=== PATIENT | male | born 1970 | race Caucasian/White ===

== ENCOUNTER 2020-06-12 13:32 | Emergency (ER) | payer OTHER, SELFPAY ==
[2020-06-12 14:10] VITALS: BP 124/77; PULSE 80; RESP 18; TEMP 36.6; O2SAT 100; BMI 25.6
[2020-06-12 16:13] VITALS: BP 140/88; PULSE 88; RESP 16; TEMP 36.9; O2SAT 98
--- NOTE | 2020-06-12 16:15 | ED.GENADULT ---
HPI - General Adult General Chief complaint: General Medical <Gretchen Mederos PA-C - Last Filed: 06/12/20 16:21> Stated complaint: NONE LISTED <Gretchen Mederos PA-C - Last Filed: 06/12/20 16:21> Time Seen by Provider: 06/12/20 15:37 <Gretchen Mederos PA-C - Last Filed: 06/12/20 16:21> Source: patient <Gretchen Mederos PA-C - Last Filed: 06/12/20 16:21> Mode of arrival: EMS <HANY Etienne Last Filed: 06/12/20 16:21> Limitations: no limitations <Gretchen Mederos PA-C - Last Filed: 06/12/20 16:21> History of Present Illness HPI narrative: Patient is a 49-year-old male with a past medical history of hyperlipidemia who was brought in by ambulance because he had sudden onset of right facial numbness that lasted approximately 5 minutes. The area of numbness is approximately 1 cm. He denies any loss of vision, blurry vision, headache, dizziness, chest pain, abdominal pain, neck pain or back pain or fevers. He has no other complaints at this time. <Gretchen Mederos PA-C - Last Filed: 06/12/20 16:21> Related Data Allergies/adverse reactions: Allergies Allergy/AdvReac Type Severity Reaction Status Date / Time aspirin [ASPIRIN] Allergy Unknown SWELLING Verified 06/12/20 14:09 ibuprofen [From MOTRIN] Allergy Unknown SWELLING Verified 06/12/20 14:09 CHOCOLATE Allergy Severe SWELLING Uncoded 11/01/19 15:20 <Gretchen Mederos PA-C - Last Filed: 06/12/20 16:21> Review of Systems Review of Systems: Yes all other systems are reviewed and are negative <Gretchen Mederos PA-C - Last Filed: 06/12/20 16:21> Neurologic: Denies Abnormal speech present <Gretchen Mederos PA-C - Last Filed: 06/12/20 16:21> [facility] Social History Social History: Social History Alcohol intake: never Smoking Status: Never smoker Smoked in Last 30 Days: No Use of substances other than those prescribed or required for medical reasons: No Advance Directives: No Advance Directives Information Provided: No <Gretchen Mederos PA-C - Last Filed: 06/12/20 16:21> Physical Exam Vital Signs: Vital Signs: Last Vital Signs Temp 98.4 F 06/12/20 16:13 Pulse 88 06/12/20 16:13 Resp 16 06/12/20 16:13 BP 140/88 H 06/12/20 16:13 Pulse Ox 98 06/12/20 16:13 Body Mass Index 25.6 <Gretchen Mederos PA-C - Last Filed: 06/12/20 16:21> Vital Signs: Last Vital Signs Temp 98.4 F 06/12/20 16:13 Pulse 88 06/12/20 16:13 Resp 16 06/12/20 16:13 BP 140/88 H 06/12/20 16:13 Pulse Ox 98 06/12/20 16:13 Body Mass Index 25.6 <Juan Machado MD - Last Filed: 06/28/20 01:39> Const: General: cooperative, healthy appearing, comfortable and no acute distress <Gretchen Mederos PA-C - Last Filed: 06/12/20 16:21> Nutritional Appearance: average body habitus <Gretchen Mederos PA-C - Last Filed: 06/12/20 16:21> Orientation/consciousness: patient oriented x3 <Gretchen Mederos PA-C - Last Filed: 06/12/20 16:21> HENMT: Head: Yes normal to inspection, Yes No palpable skull fracture present, Yes normocephalic, Yes atraumatic and No abrasion <Gretchen Mederos PA-C - Last Filed: 06/12/20 16:21> Ears: hearing grossly normal bilaterally, external ears normal and TM's normal bilaterally <Gretchen Mederos PA-C - Last Filed: 06/12/20 16:21> General nose exam: Normal external nose present and Normal nares present <Gretchen Mederos PA-C - Last Filed: 06/12/20 16:21> Face and sinus: Yes normal facial exam, Yes sinuses nontender and Yes face symmetric <Gretchen Mederos PA-C - Last Filed: 06/12/20 16:21> Mouth: Normal oral and palatal mucosa present and tongue normal <Gretchen Mederos PA-C - Last Filed: 06/12/20 16:21> Teeth and gingiva: dentition normal <MANUEL EtienneC - Last Filed: 06/12/20 16:21> Throat: Yes posterior oropharynx normal <MANUEL EtienneC - Last Filed: 06/12/20 16:21> Eyes: General: appearance normal, both eyes and all related structures <MANUEL EtienneC - Last Filed: 06/12/20 16:21> Pupils: Equal, round and reactive pupils present <Gretchen Mederos PA-C - Last Filed: 06/12/20 16:21> EOM: EOMs intact bilaterally <MANUEL EtienneC - Last Filed: 06/12/20 16:21> Neck: Neck: Yes normal visual inspection, Yes full ROM, Yes trachea midline and Yes supple <MANUEL EtienneC - Last Filed: 06/12/20 16:21> Resp: Effort & Inspection: normal respiratory effort and able to speak in complete sentences <Gretchen Mederos PA-C - Last Filed: 06/12/20 16:21> Auscultation: clear to auscultation bilaterally <Gretchen Mederos PA-C - Last Filed: 06/12/20 16:21> Cardio: Rate: regular rate <Gretchen Mederos PA-C - Last Filed: 06/12/20 16:21> Rhythm: regular rhythm <Gretchen Mederos PA-C - Last Filed: 06/12/20 16:21> Heart sounds: normal S1 and S2 <Gretchen Mederos PA-C - Last Filed: 06/12/20 16:21> GI: Inspection: Yes normal to inspection <Gretchen Mederos PA-C - Last Filed: 06/12/20 16:21> Palpation (GI): Soft to palpation and nontender <Gretchen Mederos PA-C - Last Filed: 06/12/20 16:21> Skin: General skin exam: no rashes or lesions noted <Gretchen Mederos PA-C - Last Filed: 06/12/20 16:21> Neuro: General: patient oriented x3 <Gretchen Mederos PA-C - Last Filed: 06/12/20 16:21> Cranial nerves: Yes CN's II-XII intact bilaterally and Yes Equal, round and reactive pupils present <Gretchen Mederos PA-C - Last Filed: 06/12/20 16:21> Cognition (Neuro): normal cognition <Gretchen Mederos PA-C - Last Filed: 06/12/20 16:21> Speech: No Abnormal speech present <Gretchen Mederos PA-C - Last Filed: 06/12/20 16:21> Gait exam (Neuro): Normal gait present <Gretchen Mederos PA-C - Last Filed: 06/12/20 16:21> Extrem: General: Yes normal to inspection and Yes full ROM <Gretchen Mederos PA-C - Last Filed: 06/12/20 16:21> Course Course Course Narrative: Patient is a 49-year-old female who had 1 episode of 1 centimetre of numbness and tingling on his right cheek which has completely resolved. He had no further complaints at this time. Patient's vital signs were stable. Confirmed with Dr. Haq, will discharge patient home with follow-up to PCP if this happens again. <Gretchen Mederos PA-C - Last Filed: 06/12/20 16:21> I have reviewed the chart <Juan Machado MD - Last Filed: 06/28/20 01:39> Discharge Plan Discharge Clinical Impression: Anxiety <Gretchen Mederos PA-C - Last Filed: 06/12/20 16:21> Patient Disposition: Home, Self-Care <Gretchen Mederos PA-C - Last Filed: 06/12/20 16:21> Instructions: Anxiety (ED) <Gretchen Mederos PA-C - Last Filed: 06/12/20 16:21> Additional Instructions: As discussed, this could have been due to anxiety. You stated you do have anxiety medication at home, please try to take her medication and see if that helps you feel better. You can follow-up with her PCP if the facial numbness continues. Your physical exam was normal, you were ruled out for a stroke, and your vital signs were stable today. <Gretchen Mederos PA-C - Last Filed: 06/12/20 16:21> Interventions: ED Discharge Assessment Last Done: 06/12/20 16:23 <Gretchen Mederos PA-C - Last Filed: 06/12/20 16:21> Discharge Date/Time: 06/12/20 16:25 <Gretchen Mederos PA-C - Last Filed: 06/12/20 16:21>
== END 2020-06-12 16:25 | disposition home or self-care (01) ==
PROVIDERS: Emergency Provider Emergency Medicine
DX: F41.9 Anxiety disorder, unspecified (principal); R20.2 Paresthesia of skin; E78.5 Hyperlipidemia, unspecified; Z79.82 Long term (current) use of aspirin
CPT/HCPCS: 99282; 99284

== ENCOUNTER 2022-10-06 10:38 | Outpatient (REF) | payer OTHER, SELFPAY ==
[2022-10-06 12:13] LABS: Alanine Aminotransferase 58 U/L (0-40); Albumin Level 4.5 g/dL (3.5-5.0); Alkaline Phosphatase 46 U/L (39-117); Anion Gap 12 (12-20); Aspartate Amino Transferase 35 U/L (5-37); Bilirubin Total 1.1 mg/dL (0.0-1.0); Blood Urea Nitrogen 14 mg/dL (9-16); Calcium 9.4 mg/dL (8.4-10.2); Carbon Dioxide 28 mmol/L (22-29); Chloride 105 mmol/L (96-108); Cholesterol 140 mg/dL (<200); Estimated Glomerular Filt Rate > 60; Glucose Random 115 mg/dL (60-115); HDL Cholesterol 26 mg/dL (>40); LDL Cholesterol Calculated 91 mg/dL (<100); Sodium 141 mmol/L (135-145); Total Protein 7.5 g/dL (6.5-8.0); Triglycerides 116 mg/dL (<150)
== END 2022-10-06 10:39 | disposition home or self-care (01) ==
LOC: HO.HHCL 10:38
PROVIDERS: Visit Provider Nurse Practitioner Family
DX: Z00.00 Encounter for general adult medical examination without abnormal findings (principal); E78.2 Mixed hyperlipidemia
CPT/HCPCS: 36415; 80053; 80061

== ENCOUNTER 2024-03-02 19:53 | Emergency (ER) | payer OTHER, SELFPAY ==
--- NOTE | ~2024-03-02 | XR_ITS ---
CLINICAL HISTORY: pain, injury 3 view left shoulder Comparison: None Findings: No fractures or dislocations. No significant loss of joint space or osteophytes. No erosions. No radiopaque foreign body. IMPRESSION: 1. No acute findings This document has been electronically signed by: Phan Wu MD on 03/02/2024 20:38:58
--- NOTE | ~2024-03-02 | XR_ITS ---
CLINICAL HISTORY: pain, swelling 2 view left humerus Comparison: None Findings: No fractures or dislocations. No significant arthritic change. No radiopaque foreign body. IMPRESSION: 1. Normal left humerus This document has been electronically signed by: Phan Wu MD on 03/02/2024 20:41:11
[2024-03-02 20:01] VITALS: BP 128/74; BP 128/76; PULSE 103; PULSE 105; RESP 18; TEMP 36.8; O2SAT 96; O2SAT 98; BMI 26.6
--- NOTE | 2024-03-02 20:41 | ED_ITS ---
HPI - Extremity Problem General Chief complaint: Extremity Injury, Upper Stated complaint: fell down stairs,-thin,-loc,L upper arm deformity Time Seen by Provider: 03/02/24 20:41 Source: patient and EMS Mode of arrival: EMS Limitations: no limitations History of Present Illness ED Provider: Morena Perez PA-C HPI Narrative: Patient is a 53 year old assigned male at with no reported medical history presenting to the emergency department today with left bicep pain after a slip and fall. Patient states that he slipped and fell down some steps, landing on his left upper arm. Patient denies any head strike or loss of consciousness. Patient states that he is not on any anti-coagulation medications. Patient denies any dizziness, lightheadedness, abdominal pain, nausea, vomiting, fever, chills, blurry vision, double vision, loss of vision, chest pain, difficulty breathing, shortness of breath, back pain, night sweats, pain with urination, increased urinary frequency, increased urinary urgency, blood in his urine or stool, syncope or a near syncopal episode, bowel incontinence, bladder incontinence, or any other complaints at this time. MD Complaint: extremity pain Location: left and upper extremity Radiation: none Relieving factors: nothing Exacerbating factors: nothing Associated symptoms: denies other symptoms Related Data Allergies Allergy/AdvReac Type Severity Reaction Status Date / Time aspirin [ASPIRIN] Allergy Unknown SWELLING Verified 03/02/24 20:06 ibuprofen [From MOTRIN] Allergy Unknown SWELLING Verified 03/02/24 20:06 CHOCOLATE Allergy Severe SWELLING Uncoded 11/01/19 15:20 Review of Systems Constitutional: Constitutional: Reports no additional constitutional complaints, Denies chills, Denies fever(s) and Denies night sweats Eyes: Eyes: Reports no additional eye complaints, Denies blurry vision, Denies change in vision, Denies diplopia, Denies eye discharge, Denies loss of vision and Denies eye pain ENT: Denies dizziness Cardiovascular: Cardiovascular: Reports no additional cardiovascular complaints, Denies chest pain, Denies lightheadedness, Denies Loss of Consciousness and Denies dyspnea Respiratory: Respiratory: Reports no additional respiratory complaints and Denies dyspnea Gastrointestinal: Gastrointestinal: Reports no additional gastrointestinal complaints, Denies abdominal pain, Denies melena, Denies hematochezia, Denies change in bowel habits and Denies change in stool character Genitourinary: Genitourinary: Reports no additional male genitourinary complaints, Denies hematuria, Denies oliguria, Denies difficulty urinating, Denies dysuria, Denies urinary frequency, Denies urinary hesitancy, Denies urinary incontinence and Denies urinary urgency Musculoskeletal: Musculoskeletal: Reports no additional musculoskeletal complaints, Denies numbness and Denies tingling Comments: left upper extremity pain Neurologic: Denies dizziness, Denies loss of vision, Denies numbness and Denies tingling Psychiatric: Psychiatric: Reports no additional psychiatric complaints Endocrine: Endocrine: Reports no additional endocrine complaints Hematologic/Lymphatic: Hematologic/Lymphatic: Reports no additional hematologic/lymphatic complaints Allergic/Immunologic: Allergic/Immunologic: Reports no additional allergic/immunologic complaints PMFSH Past Medical History Attestation statement: The following information was validated with the patient. Source: old records reviewed and nursing notes reviewed Social History Social History Alcohol intake: never Smoked in Last 30 Days: No Use of substances other than those prescribed or required for medical reasons: No Advance Directives: No Advance Directives Information Provided: No Physical Exam Vital Signs: Vital Signs: Last Vital Signs Temp 98.2 F 03/02/24 21:00 Pulse 98 03/02/24 21:00 Resp 18 03/02/24 21:00 BP 122/72 03/02/24 21:00 Pulse Ox 97 03/02/24 21:00 O2 Del Method Room Air 03/02/24 21:00 BMI result Body Mass Index 26.6 Const: General: cooperative, no acute distress, alert and awake Nutritional Appearance: well nourished Orientation/consciousness: patient oriented x3 Limitations: no limitations HEENT: Head: Yes normal to inspection and Yes atraumatic Ears: hearing grossly normal bilaterally and external ears normal General nose exam: Normal external nose present, no nasal discharge noted and no epistaxis Face and sinus: Yes normal facial exam, No abrasion and No laceration Mouth: Normal oral and palatal mucosa present, no drooling and no muffled voice Eyes: General: appearance normal, both eyes and all related structures Periorbital: periorbital findings normal Eyelids: Yes eyelids normal Conjunctivae: conjunctivae normal Pupils: Equal, round and reactive pupils present EOM: EOMs intact bilaterally Neck: Neck: Yes normal visual inspection, Yes full ROM and Yes no l ymphadenopathy Chest: Chest palpation & inspection: normal inspection of the chest Resp: Effort & Inspection: normal respiratory effort and able to speak in complete sentences GI: Inspection: Yes normal to inspection Neuro: General: patient oriented x3 and moves all extremities Cranial nerves: Yes Equal, round and reactive pupils present Cognition (Neuro): normal cognition Extrem: Other: minimal swelling to the anterior left upper arm / bicep area intact bicep tendons with full ROM General: Yes full ROM and Yes capillary refill normal Psych: Appearance: grossly normal Mental Status: mental status grossly normal Affect: normal affect Attitude: cooperative Thought process: Normal thought process present Thought content: Normal thought content present Insight: Good insight present (Psych) Medical Decision Making Medical Decision Making MDM Narrative: Patient is a 53 year old assigned male at with no reported medical history presenting to the emergency department today with left bicep pain after a slip and fall. Patient's physical exam was as noted in the physical exam portion of this note. Patient's left humerus and shoulder x-rays showed no acute process. I explained my physical exam findings as well as all test results to the patient. I answered all questions asked by the patient. Patient requested to have an BRET wrap placed on the area of swelling to his left upper arm. BRET wrap was placed, without incident. Patient's left upper extremity PMS was intact prior to and after BERT placement. I stressed the importance of the patient taking his medication as directed (either prescribed or as the over the counter packaging recommends). I stressed the importance of the patient following up with his primary care provider and an orthopedic provider. I stressed the importance of the patient returning to the emergency department immediately if his symptoms were to worsen or if he were to develop any numbness, tingling, dizziness, shortness of breath, difficulty breathing, chest pain, blurry vision, loss of vision, nausea, vomiting, abdominal pain, fever, chills, back pain, or any other complaints. Patient verbalized agreement and understanding with this treatment plan and discharge. Differential Diagnosis Differential Diagnoses: The differential diagnosis associated with the presentation includes Left bicep strain Left bicep sprain Left bicep bruise Admission/Observation Consideration of admission/observation: Escalation of care including admission/observation considered Patient would have been admitted to the hospital had his work up had any findings where hospital admission was appropriate and his clinical presentation warranted hospital admission. Independent Interpretation I performed an independent interpretation of an: Plain X-Ray Interpretation: My interpretation is in agreement with the radiologist's impression of these [facility] ging studies. CLINICAL HISTORY: pain, swelling 2 view left humerus Comparison: None Findings: No fractures or dislocations. No significant arthritic change. No radiopaque foreign body. IMPRESSION: 1. Normal left humerus This document has been electronically signed by: Phan Wu MD on 03/02/2024 20:41:11 Dictated By: Phan Wu MD Signed By: Electronically signed by Phan Wu MD 03/02/242041 CLINICAL HISTORY: pain, injury 3 view left shoulder Comparison: None Findings: No fractures or dislocations. No significant loss of joint space or osteophytes. No erosions. No radiopaque foreign body. IMPRESSION: 1. No acute findings This document has been electronically signed by: Phan Wu MD on 03/02/2024 20:38:58 Dictated By: Phan Wu MD Signed By: Electronically signed by Phan Wu MD 03/02/242038 Radiology Impression Discussion of test interpretation with radiology: I have reviewed the radiologist's reading. Independent Historian Clinical information obtained from an independent historian. History obtained from or confirmed by: EMS (EMS provided additional history and confirmed the history provided by the patient.) Procedures Orthopedic Splinting/Casting Injury #1: Side: left Upper Extremity Injury Location: upper arm Upper Extremity Immobilizer: Bret wrap Discharge Plan Discharge Clinical Impression: Bruise, Biceps strain Patient Disposition: Home, Self-Care Instructions: Muscle Strain (DC), Contusion in Adults (ED) Additional Instructions: Follow up with your primary care provider and an orthopedic provider. Return to the emergency department immediately if your symptoms worsen or if you develop any dizziness, shortness of breath, difficulty breathing, chest pain, blurry vision, loss of vision, nausea, vomiting, abdominal pain, fever, chills, back pain, or any other complaints. Referrals: [facility] [Provider Group] (Call to establish and follow up with a primary care provider. If you already have a primary care provider, please follow up with them.) [facility] Primary [facility], Amanda [Provider Group] (Call to establish and follow up with a primary care provider. If you already have a primary care provider, please follow up with them.) [facility],Kelly [Provider Group] (Call to establish and follow up with a primary care provider. If you already have a primary care provider, please follow up with them.) [facility] [Provider Group] (Call to establish and follow up with an orthopedic provider.) Stand Alone Forms: Work/School Release Interventions: ED Discharge Assessment Last Done: 03/02/24 21:00 Discharge Date/Time: 03/02/24 21:01 Print Language: Divehi
[2024-03-02 21:00] VITALS: BP 122/72; PULSE 98; RESP 18; TEMP 36.8; O2SAT 97
== END 2024-03-02 21:01 | disposition home or self-care (01) ==
PROVIDERS: Emergency Provider Internal Medicine
DX: S46.212A Strain of muscle, fascia and tendon of other parts of biceps, left arm, initial encounter (principal); S40.022A Contusion of left upper arm, initial encounter; W10.8XXA Fall (on) (from) other stairs and steps, initial encounter; M79.602 Pain in left arm; Y93.89 Activity, other specified; Y92.038 Other place in apartment as the place of occurrence of the external cause; Y99.9 Unspecified external cause status
CPT/HCPCS: 73030; 73060; 99283

== ENCOUNTER → 2024-03-02 20:15 | Outpatient (BNV) | payer OTHER, SELFPAY | PROVIDERS: Emergency Provider Internal Medicine; Visit Provider Radiology Diagnostic Radiology | DX: S49.92XA Unspecified injury of left shoulder and upper arm, initial encounter (principal); M25.512 Pain in left shoulder | CPT/HCPCS: 73030; 73060 ==

== ENCOUNTER 2024-04-04 09:28 | Outpatient (AMB) | payer OTHER, SELFPAY ==
--- NOTE | 2024-04-04 09:45 | A.OFFVIS_ITS ---
Vital Signs 04/04/24 09:50 Height 5 ft 9 in Weight 179 lb BMI 26.4 Handedness Right Intake Visit Reasons: FC-ED f/u left Bicep strain, DOI 03/02/24 Intake Note: Arden is a 53 year old right hand dominant male who presents today for a evaluation of his left bicep strain, DOI 03/04/24. Patient states that he slipped and fell down some steps, landing on his left upper arm. He states that he is feel good today. Patient is not feeling any tenderness in his bicep. He states that he noticed some bruising on his upper arm. He mentions that he d idn't take anything for the pain. Allergies aspirin [ASPIRIN] Allergy (Unknown, Verified 04/04/24 09:49) SWELLING ibuprofen [From MOTRIN] Allergy (Unknown, Verified 04/04/24 09:49) SWELLING CHOCOLATE Allergy (Severe, Uncoded 11/01/19 15:20) SWELLING HPI HPI FC-ED f/u left Bicep strain, DOI 03/02/24: Details: Mr. Paniagua is a 53-year-old right-hand dominant male who presents to the office today for evaluation of a left bicep injury that he sustained on 03/04/24. Abdirahman manzano reports that he slipped and fell down some steps, landing on his left upper arm. Today, the patient reports that he is doing well and has no pain or difficulty with motion. He states that he noticed some bruising on his upper arm after the incident but has resolved. [facility] Social History (Updated 04/04/24 @ 09:50 by Jalyn Osborne) Alcohol intake: never Patient Tobacco Use Status: Never used Tobacco Current occupational status: disabled Current occupation: right hand dominant Review of Systems Const All systems reviewed & are unremarkable except as noted in HPI and below Physical Exam Vital Signs: BMI result Body Mass Index 26.4 Const General: cooperative, healthy appearing and no acute distress Resp Effort & Inspection: normal respiratory effort and able to speak in complete sen tences Cardio Rate: regular rate Peripheral pulses: Peripheral pulses 2+ throughout Skin Lesions: no lesions Rashes: no rashes Extrem Other: Left distal biceps tendon is not palpable. There is an obvious Robb deformity of the muscle retracted proximally. Able to demonstrate full elbow range of motion with pronation, supination, extension and flexion. Surprisingly, the patient is able to demonstrate good strength with resisted pronation supination. Sensation is intact. Assessment & Plan Assessment & Plan (1) Rupture of left distal biceps tendon: Code(s): S46.212A - Strain of muscle, fascia and tendon of other parts of biceps, left arm, initial encounter Category: Medical Plan Mr. Paniagua is a 53-year-old right-hand dominant male who presents to the office today for evaluation of a left bicep injury that he sustained on 03/04/24. Patient reports that he slipped and fell down some steps, landing on his left upper arm. Today, the patient reports that he is doing well and has no pain or difficulty with motion. He states that he noticed some bruising on his upper arm after the incident but has resolved. While in the office today, we discussed surgical versus nonsurgical options. As the patient is roughly 4 weeks out from his injury nonoperative treatment plan was discussed. The patient is in agreement with this plan. We discussed that he may have some residual weakness with pronation supination. This is his nondominant hand and patient understands and accepts. Patient is overall doing very well and has full range of motion and good strength against resistance. Therefore, physical therapy was deferred at this time. He will follow up p.r.n., sooner needed. X-rays of the left humerus which were obtained on 03/02/2024 and are available for my review which revealed retraction of the biceps muscle proximally. No acute fracture dislocation. Coding Level of Care Code New Pt Level 3 (50969) Diagnoses Rupture of left distal biceps tendon S46.212A
--- OUTSIDE RECORDS SUMMARY | 2024-04-04 09:47 | XMS_ITS | Encounter Summary ---
Author Organization [employer] Address [address] [place] [address] Care Team Providers Care Warehouse Supervisor Name Role Phone Sofía Bell Primary Care Provider + Noemi Burnham NP Primary Care Provider + Encounter Details Date Type Department Care Team (Late st Contact Info) Description 05/03/2022 Orders Only [facility] [address] [place] [address] Usha Blackmon LPN Social History Tobacco Use Types Packs/Day Years Used Date Smoking Tobacco: Never Assessed Sex and Gender Information Value Date Recorded Sex Assigned at Male 12/14/2021 10:17 AM EDT Legal Sex Male 10:17 AM EDT Gender Identity Male 12/14/2021 10:17 AM EDT Sexual Orientation Choose not to disclose 2021 10:17 AM EDT documented as of this encounter Plan of Treatment Upcoming Encounters Date Type Department Care Team (Late st Contact Info) Description 05/18/2024 1:00 PM EDT Office Visit [facility] [address] [place] [address] Noemi Burnham NP [address] [place] [address] documented as of this encounter Visit Diagnoses Not on filedocumented in this encounter Care Teams Warehouse Supervisor Relationship Specialty Start Date End Date Sofía Bell FNP [address] [place] [address] PCP - General Family Medicine 12/03/21 10/18/23 Noemi Burnham NP [address] [place] [address] PCP - General Family Medicine 10/19/23 documented as of this encounter
--- OUTSIDE RECORDS SUMMARY | 2024-04-04 09:47 | XMS_ITS | Clinical Summary ---
Author Organization [employer] Address [address] [place] [address] [address] [place] [address] Care Team Providers Care Cook Enchilada Name Role Phone Noemi Burnham NP Primary Care Provider [phone] Allergies Active Allergy Reactions Criticality Noted Date Comments Aspirin Itching 09/01/2020 Other reaction(s): Rash, Rash Ibuprofen Swelling 10/05/2011 Medications hydrOXYzine pamoate (Vistaril) 25 MG capsule 3 Active sertraline (Zoloft) 100 MG tablet 3 Active cetirizine (ZyrTEC) 10 MG tablet Take 1 tablet by mouth at bed time. 2 Active cholecalciferol (Vitamin D-3) 50 MCG (1999 UT) capsule Take 1 capsule by mouth at bed time. 1 Active sodium chloride ([place]) 0.65 % nasal spray Administer 2 sprays into affected nostril(s) every 6 (six) hours. 2 Active atorvastatin (Lipitor) 20 MG tabletIndications: Mixed hyperlipidemia TAKE 1 TABLET BY MOUTH EVERY DAY AT BEDTIME 90 tablet 1 4 Active fenofibrate micronized (LoFibra) 134 MG capsule TAKE 1 CAPSULE BY MOUTH EVERY DAY WITH FOOD 90 capsule 3 4 Active Active Problems Problem Noted Date Diagnosed Date Skin tag 09/14/2022 Vitamin D deficiency 09/15/2017 Low HDL (under 40) 09/15/2017 Impaired fasting glucose 11/29/2011 Mixed anxiety and depressive disorder 11/15/2011 Hyperlipidemia 11/15/2011 Backache 11/15/2011 Allergic rhinitis 08/31/2011 Encounters Date Type Department Care Team Description 02/22/[address] [facility] MED[facility]INE [address] [facility] [place], [place] [phone] Noemi Burnham NP Med Refill 02/13/[address] [facility] & PEDS [address] [place] [address] Sofía Bell FNP from Last 3 Months Immunizations Name Administration Dates Next Due Hep B, adult 09/14/2023,04/13/2023,03/11/2023 Influenza injectable quadriv alent IIV4 with preservative 12/05/2017,11/03/2016,11/04/2014 Influenza injectable quadriv alent preservative free 11/01/2019,2018,11/20/2015 Influenza, IIV3, injectable 11/05/2013, 1 Influenza, Split (incl. casimiro fied surface antigen) 11/13/2012,11/15/2011 TD (adult), 2 Lf tetanus tox oid, preservative free, adsorbed 12/12/2020 Tdap 06/15/2010 Family History Medical History Relation Name Comments Liver cancer Father Hypertension Mother Stroke Mother Relation Name Status Comments Father Mother Social History Tobacco Use Types Packs/Day Years Used Date Smoking Tobacco: Former Cigarettes Smokeless Tobacco: Never Tobacco Cessation:Counseling Given: Not Answered Comments:Haven't smoked since teenage Alcohol Use Standard Drinks/Week Comments Not Currently 0 (1 standard drink = 0.6 oz pur e alcohol) Depression Answer Date Recorded Patient Health Questionnaire-9 Score 0 03/11/2023 Patient Health Questionnaire-9 Score 0 03/11/2023 Last PHQ-9: Questionnaire Data Not on file 0 03/11/2023 Housing Stability Answer Date Recorded What is your housing situation today? I have kassandra maritza 03/11/[address] you li ve. Do you have problems with any of the following? Pests such as bugs, ants, or mice;Mold;Lead [place] 03/11/2023 Food Insecurity Answer Date Recorded Within the past 12 months, y ou worried that your food would run out before you got money to buy more: Never True 12/14/2022 Within the past 12 months,th e food you bought just didn't last and you didn't have enough money to get more: Never True Transportation Answer Date Recorded In the past 12 months, has l ack of transportation kept you from medical appts, meetings, work or from getting things needed for daily living? No 12/14/2022 Utilities Answer Date Recorded In the past 12 months, has t he electric, gas, oil or water company threatened to shut off services in your home? I am not sure 03/11/2023 Depression Answer Date Recorded Patient Health Questionnaire-2 Score 0 03/11/2023 Sex and Gender Information Value Date Recorded Sex Assigned at Male 12/14/2021 10:17 AM EDT Legal Sex Male 10:17 AM EDT Gender Identity Male 12/14/2021 10:17 AM EDT Sexual Orientation Choose not to disclose 2021 10:17 AM EDT Last Filed Vital Signs Vital Sign Reading Time Taken Comments Blood Pressure 126/79 09/12/2023 10:54 AM EDT Pulse 98 09/12/2023 10:54 AM EDT Temperature 36.8 ??C (98.3 ??F) 09/12/2023 10:54 AM E DT Respiratory Rate 26 09/12/2023 10:54 AM EDT Oxygen Saturation 100% 09/12/2023 10:54 AM EDT Inhaled Oxygen Concentration - - Weight 77.7 kg (171 lb 6.4 oz) 09/12/2023 10:54 AM EDT Height 175.3 cm (5' 9 ) 09/12/2023 10:54 AM EDT Body Mass Index 25.31 09/12/2023 10:54 AM EDT Plan of Treatment Upcoming Encounters Date Type Department Care Team (Late st Contact Info) Description 05/18/2024 1:00 PM EDT Office Visit [facility] MEDICINE [address] [place] [address] Noemi Burnham NP [address] [place] [address] Health Maintenance Due Date Last Done Comments CT Colonography 1969 Colonoscopy 1969 Colorectal Cancer Screening 1969 FIT DNA/Cologuard 1969 FIT 1969 FOBT 1969 Sigmoidoscopy 1969 Alcohol/Substance Use Screening 1981 Pneumococcal Vaccine: 50+ Years (1 of 1 - PCV) 11/07/2019 Zoster Vaccines (1 of 2) 11/07/2019 COVID-19 Vaccine (1 - 2023- season) 2023 Influenza Vaccine (#1) 2023 0, 2018, 12/05/2017, Additional history exists Depression Screening 03/11/2024 03/11/2023, 03/11/19 24 SDOH Screening 03/11/2024 03/11/2023 Tobacco Screening 09/11/2024 09/12/2023 Lipid Panel 10/07/2027 10/06/2022, 12/16, 05/12/2021, Additional history exists DTaP/Tdap/Td Vaccines (3 - Td or Tdap) 12/12/2030 12/12/2020, 06/15/2010 RSV Patients and Patients Aged 60 years or older (1 - 1-dose 75+ series) 2044 HIV Screening Completed 05/23/2020 Hepatitis C Screening Completed 05/23/2020 Hepatitis B Vaccines Completed 09/14/2023, 04/13/2023, 03/11/2023 HIB Vaccines Aged Out No longer eligi ble based on patient's age to complete this topic HPV Vaccines Aged Out No longer eligi ble based on patient's age to complete this topic Hepatitis A Vaccines Aged Out No long er eligible based on patient's age to complete this topic IPV Vaccines Aged Out No longer eligi ble based on patient's age to complete this topic Meningococcal Vaccine Aged Out No connor geo eligible based on patient's age to complete this topic RSV under 20 months Aged Out No longe r eligible based on patient's age to complete this topic Rotavirus Vaccines Aged Out No longer eligible based on patient's age to complete this topic Procedures Procedure Name Priority Date/Time Associated Diagnosis Comments LIPID PANEL, STANDARD Routine 10/06/2022 10:46 AM EDT Mixed hyperlipidemia ZZZ HISTORICAL HEPATITIS C AB W/REFL TO HCV RNA, QN, PCR Routine 05/23/2020 10:42 AM EDT HIV 1/2 ANTIGEN/ANTIBODY, FOURTH GENERATION W/RFL Routine 05/23/2020 10:42 AM EDT from Last 3 Months or Most Recently Relevant to Health Maintenance Results * (ABNORMAL) Lipid Panel, Standard (10/06/2022 10:46 AM EDT) Triglycerides 116 <150 mg/dL [facility] Comment:Desirable Triglyceri de: less than 150 mg/dLBorderline High Triglyceride 150-199 mg/dLHigh Triglyceride: 200-499 mg/dLVery High Triglyceride: greater than or equal to 5OO mg/dL Cholesterol 140 <200 mg/dL [facility] Comment:Desirable Cholestero l: less than 200 mg/dLBorderline High Cholesterol: 200-239 mg/dLHigh Cholesterol: greater than 239 mg/dL LDL Cholesterol Calculated 91 <100 mg/dL [facility] Comment:Desirable LDL: less than 100 mg/dLNear Optimal/Above Optimal LDL: 110- 129 mg/dLBorderline High LDL: 130-159 mg/dLHigh LDL: 160-189 mg/dLVery High LDL: greater than or equal to 190 mg/dL HDL Cholesterol 26(L) >40 mg/dL [facility] Comment:Desirable HDL: great er than 40 mg/dL Note: This HDL assay may give artificially low results in patients with liver disease. Blood Venous blood specimen / Unknown 10/06/2022 10:46 AM EDT 10/06/2022 11:05 AM EDT us Sofía Bell [facility] LAB BLOOD ORDERABLES Final Resu lt [facility] [address] [place] [address] [phone] * HEPATITIS C AB W/REFL TO HCV RNA, QN, PCR (05/23/2020 10:42 AM EDT) HEPATITIS C ANTIBODY NON-REACT DELISA NON-REACT DELISA [facility] INDEX 0.01 <1.00 [facility] Comment: ?? HCV antibody was non-reactive. There is no laboratory ?? evidence of HCV infection. ?? In most cases, no further action is required. However, if recent HCV exposure is suspected, a test for HCV RNA (test code 93159) is suggested. ?? For additional information please refer to http://JustFamily.Fancy Hands/faq/RDU03r4 (This link is being provided for informational/ educational purposes only.) ?? 05/23/2020 10:4 2 AM EDT us Natalie Velazquez MD HISTORICAL/NON ORDERABLE LABS Final Result Performing Organization Address [facility] Phone Number [facility] [address] * HIV 1/2 ANTIGEN/ANTIBODY,FOURTH GENERATION W/RFL (05/23/2020 10:42 AM EDT) Pathologist [facility] HIV-1/2 ANTIGEN AND ANTIBODIES, 4TH GENERATION W/ REFLEX NON-REACT DELISA NON-REACT DELISA [facility] Comment: HIV-1 antigen and HIV-1/HIV-2 antibodies were not detected. There is no laboratory evidence of HIV infection. ?? PLEASE NOTE: This information has been disclosed to you from records whose confidentiality may be protected by state law. ??If your state requires such protection, then the state law prohibits you from making any further disclosure of the information without the specific written consent of the person to whom it pertains, or as otherwise permitted by law. A general authorization for the release of medical or other information is NOT sufficient for this purpose. ? For additional information please refer to http://JustFamily.Fancy Hands/faq/EUV600 (This link is being provided for informational/ educational purposes only.) ? The performance of this assay has not been clinically validated in patients less than 2 years old. ?? 05/23/2020 10:4 2 AM EDT us Natalie Velazquez MD LAB BLOOD ORDERABLES Final Re sult Performing Organization Address [facility] Phone Number [facility] [address] from Last 3 Months or Most Recently Relevant to Health Maintenance Insurance [facility] C[facility] Care Teams Cook Enchilada Relationship Specialty Start Date End Date Noemi Burnham NP [address] [place] [address] KATE MENDOZA PCP - General Family Medicine 10/19/23
[2024-04-04 09:50] VITALS: BMI 26.4
== END 2024-04-04 13:10 | disposition home or self-care (01) ==
PROVIDERS: Visit Provider Physician Assistant
DX: S46.212A Strain of muscle, fascia and tendon of other parts of biceps, left arm, initial encounter (principal); W10.8XXA Fall (on) (from) other stairs and steps, initial encounter
CPT/HCPCS: 99203

== ENCOUNTER → 2024-04-04 09:28 | Outpatient (BNVA) | payer OTHER, SELFPAY | PROVIDERS: Visit Provider Physician Assistant | DX: S46.212A Strain of muscle, fascia and tendon of other parts of biceps, left arm, initial encounter (principal); W01.0XXA Fall on same level from slipping, tripping and stumbling without subsequent striking against object, initial encounter; Y93.9 Activity, unspecified; Y92.9 Unspecified place or not applicable; Y99.9 Unspecified external cause status | CPT/HCPCS: 99202 ==

== ENCOUNTER 2024-09-06 09:33 | Outpatient (REF) | payer OTHER, SELFPAY ==
--- OUTSIDE RECORDS SUMMARY | 2024-09-06 10:13 | XMS_ITS | Clinical Summary ---
Author Organization [employer] Address [address] [facility] [address] [place] [address] Care Team Providers Care Launderer Hand Name Role Phone Noemi Burnham NP Primary Care Provider [phone] Allergies Active Allergy Reactions Criticality Noted Date Comments Aspirin Itching 09/01/2020 Other reaction(s): Rash, Rash Ibuprofen Swelling 10/05/2011 Medications hydrOXYzine pamoate (Vistaril) 25 MG capsule 023 Active sertraline (Zoloft) 100 MG tablet 023 Active fenofibrate micronized (LoFibra) 134 MG capsule TAKE 1 CAPSULE BY MOUTH EVERY DAY WITH FOOD 90 capsule 3 024 Active acetaminophen (Tylenol) 500 MG tablet Take 1 tablet by mouth Every 4-6 hours as needed for mild pain or headaches. Active atorvastatin (Lipitor) 20 MG tabletIndications :Mixed hyperlipidemia Take 1 tablet (20 mg) by mouth at bedtime. 90 tablet 1 025 Active carbamide peroxide (Debrox) 6.5 % otic solutionIndicatio ns:Bilateral impacted cerumen Administer 5 drops into each ear 2 times daily for 4 days. 15 mL 025 2024 Active sodium chloride ([place]) 0.65 % nasal spray Administer 2 sprays into affected nostril(s) every 6 (six) hours. 022 2024 Discontinued(M ed list cleanup (will not trigger notification to Pharmacy)) atorvastatin (Lipitor) 20 MG tabletIndications :Mixed hyperlipidemia TAKE 1 TABLET BY MOUTH AT BEDTIME 90 tablet 1 025 2024 Discontinued(R eorder (will not trigger notification to Pharmacy)) Active Problems Problem Noted Date Diagnosed Date Skin tag 09/14/2022 Vitamin D deficiency 09/15/2017 Low HDL (under 40) 09/15/2017 Impaired fasting glucose 11/29/2011 Mixed anxiety and depressive disorder 11/15/2011 Hyperlipidemia 11/15/2011 Backache 11/15/2011 Allergic rhinitis 08/31/2011 Encounters Date Type Department Care Team Description 09/03/2024 1:00 PM EDT Office Visit [facility] MEDICINE [address] [place] [address] Noemi Burnham NP Screening for colon cancer (Primary Dx); Mixed hyperlipidemia; Bilateral impacted cerumen; Chronic left ear pain; Dietary counseling; Exercise counseling; Overweight 09/03/2024 Travel 08/31/2024 Telephone [facility] MEDICINE [address] [place] [address] Noemi Burnham NP CHART PREP 08/27/2024 Patient Outreach [facility] CH[facility] MED & PEDS [address] [place] [address] Noemi Burnham NP Pre-visit Planning (SDOH negative, Tobacco screening negative. ) from Last 3 Months Immunizations Immunization Administration Dates Next Due Hep B, adult [...] drink = 0.6 oz pur e alcohol) Alcohol Answer Date Recorded How often do you have a drink containing alcohol ? 0 09/03/2024 How many drinks containing a lcohol do you have on a typical day when you are drinking? 0 09/03/2024 How often do you have six or more drinks on one occasion? 0 09/03/2024 Depression Answer Date Recorded Patient Health Questionnaire-9 Score 0 09/03/2024 Patient Health Questionnaire-9 Score 0 09/03/2024 Last PHQ-9: Questionnaire Data Not on file 0 09/03/2024 Housing Stability Answer Date Recorded What is your housing situation today? I am not s ure 09/03/[address] you li ve. Do you have problems with any of the following? Mold 09/03/2024 Food Insecurity Answer Date Recorded Within the past 12 months, y ou worried that your food would run out before you got money to buy more: Never True 08/27/2024 Within the past 12 months,th e food you bought just didn't last and you didn't have enough money to get more: Never True Transportation Answer Date Recorded In the past 12 months, has l ack of transportation kept you from medical appts, meetings, work or from getting things needed for daily living? No 08/27/2024 Utilities Answer Date Recorded In the past 12 months, has t he electric, gas, oil or water company threatened to shut off services in your home? No 08/27/2024 Depression Answer Date Recorded Patient Health Questionnaire-2 Score 0 09/03/2024 Internet Access Answer Date Recorded Internet Access Q1 Yes 08/27/2024 Internet Access Q2 Not on file 08/27/2024 Sex and Gender Information Value Date Recorded Sex Assigned at Male 12/14/2021 10:17 AM EDT Legal Sex Male 10:17 AM EDT Gender Identity Male 12/14/2021 10:17 AM EDT Sexual Orientation Choose not to disclose 2021 10:17 AM EDT Last Filed Vital Signs Vital Sign Reading Time Taken Comments Blood Pressure 120/86 09/03/2024 1:09 PM EDT Pulse 93 09/03/2024 1:09 PM EDT Temperature 37.2 C (98.9 F) 09/03/2024 1:09 PM EDT Respiratory Rate 23 09/03/2024 1:09 PM EDT Oxygen Saturation 98% 09/03/2024 1:09 PM EDT Inhaled Oxygen Concentration - - Weight 81.6 kg (180 lb) 09/03/2024 1:09 PM EDT Height 175.3 cm (5' 9 ) 09/03/2024 1:09 PM EDT Body Mass Index 26.58 09/03/2024 1:09 PM EDT Plan of Treatment Upcoming Encounters Date Type Department Care Team (Late st Contact Info) Description 09/12/2024 11:30 AM EDT Clinical Support [facility] MEDICINE [address] [place] [phone] 10/12/2024 11:00 AM EDT Office Visit [facility] MEDICINE [address] [place] [phone] Noemi Burnham NP [address] [place] [address] Health Maintenance Due Date Last Done Comments CT Colonography 1969 Colonoscopy 1969 Colorectal Cancer Screening 1969 FIT DNA/Cologuard 1969 FIT 1969 FOBT 1969 Sigmoidoscopy 1969 Pneumococcal Vaccine: 50+ Years (1 of 1 - PCV) 11/07/2019 Zoster Vaccines (1 of 2) 11/07/2019 COVID-19 Vaccine (1 - 2023- season) 2023 Tobacco Screening 09/11/2024 09/12/2023 Influenza Vaccine (#1) 2024 , 2018, 12/05/2017, Additional history exists Alcohol/Substance Use Screening 09/03/2025 09/03/2024 Depression Screening 09/03/2025 09/03/2024, 09/04/19 25 Disability Screening 09/03/2025 09/03/2024 SDOH Screening 09/03/2025 09/03/2024 Lipid Panel 10/07/2027 10/06/2022, 12/16, 05/12/2021, Additional [...] patient's age to complete this topic Meningococcal B Vaccine Aged Out No l onger eligible based on patient's age to complete [...] 10:46 AM EDT) Triglycerides 116 <150 mg/dL [facility] Comment:Desirable Triglyceri de: less than 150 mg/dLBorderline High Triglyceride 150-199 mg/dLHigh Triglyceride: 200-499 mg/dLVery High Triglyceride: greater than or equal to 5OO mg/dL Cholesterol 140 <200 mg/dL [facility] Comment:Desirable Cholestero l: less than 200 mg/dLBorderline High Cholesterol: 200-239 mg/dLHigh Cholesterol: greater than 239 mg/dL LDL Cholesterol Calculated 91 <100 mg/dL [facility] Comment:Desirable LDL: less than 100 mg/dLNear Optimal/Above Optimal LDL: 110- 129 mg/dLBorderline High LDL: 130-159 mg/dLHigh LDL: 160-189 mg/dLVery High LDL: greater than or equal to 190 mg/dL HDL Cholesterol 26(L) >40 mg/dL [facility] Comment:Desirable HDL: great er than 40 mg/dL Note: This HDL assay may give artificially low results in patients with liver disease. Blood Venous blood specimen / Unknown 10/06/2022 10:46 AM EDT 10/06/2022 11:05 AM EDT us Sofía Bell [employer] LAB BLOOD ORDERABLES Final Resu lt Performing Organization Address [facility] Co de Phone Number [facility] [address] [place] [address] [phone] * HEPATITIS C AB W/REFL TO HCV RNA, QN, PCR (05/23/2020 10:42 AM EDT) HEPATITIS C ANTIBODY NON-REACT [facility]ISA NON-REACT [facility] INDEX 0.01 <1.00 [facility] Comment: HCV antibody was non-reactive. There is no laboratory evidence of HCV infection. In most cases, no further action is required. However, if recent HCV exposure is suspected, a test for HCV RNA (test code 72741) is suggested. For additional information please refer to http://education.Maraquia.Moneyspyder/faq/KPH31u0 (This link is being provided for informational/ educational purposes only.) 05/23/2020 10:4 2 AM EDT us Natalie Velazquez MD HISTORICAL/NON ORDERABLE LABS Final Result Performing Organization Address City/[facility]/ZIP Co de Phone Number [facility] [address] * HIV 1/2 ANTIGEN/ANTIBODY,FOURTH GENERATION W/RFL (05/23/2020 10:42 AM EDT) HIV-1/2 ANTIGEN AND ANTIBODIES, 4TH GENERATION W/ REFLEX NON-REACT DELISA NON-REACT DELISA [facility] Comment: HIV-1 antigen and HIV-1/HIV-2 antibodies were not detected. There is no laboratory evidence of HIV infection. PLEASE NOTE: This information has been disclosed to you from records whose confidentiality may be protected by state law. If your state requires such protection, then the state law prohibits you from making any further disclosure of the information without the specific written consent of the person to whom it pertains, or as otherwise permitted by law. A general authorization for the release of medical or other information is NOT sufficient for this purpose. For additional information please refer to http://education.[employer]/faq/VKS036 (This link is being provided for informational/ educational purposes only.) The performance of this assay has not been clinically validated in patients less than 2 years old. 05/23/2020 10:4 2 AM EDT us Natalie Velazquez MD LAB BLOOD ORDERABLES Final Re sult [facility] [address] from Last 3 Months or Most Recently Relevant to Health Maintenance Insurance [facility] ONE CARE < 65 Care Teams Launderer Hand Relationship Specialty Start Date End Date Noemi Burnham NP [address] [place] [id number] PCP - General Family Medicine 10/19/23
[2024-09-06 11:53] LABS: Cholesterol 125 mg/dL (<200); HDL Cholesterol 25 mg/dL (>40); Triglycerides 98 mg/dL (<150)
[2024-09-06 11:55] LABS: Alanine Aminotransferase 84 U/L (0-40); Albumin Level 4.9 g/dL (3.5-5.0); Alkaline Phosphatase 66 U/L (39-117); Anion Gap 12 (12-20); Aspartate Amino Transferase 47 U/L (5-37); Blood Urea Nitrogen 15 mg/dL (9-16); Calcium 9.3 mg/dL (8.4-10.2); Carbon Dioxide 29 mmol/L (22-29); Chloride 105 mmol/L (96-108); Cholesterol 126 mg/dL (<200); Estimated Glomerular Filt Rate > 60; HDL Cholesterol 25 mg/dL (>40); Potassium 3.9 mmol/L (3.3-5.1); Sodium 142 mmol/L (135-145); Total Protein 7.5 g/dL (6.5-8.0); Triglycerides 96 mg/dL (<150)
== END 2024-09-06 09:34 | disposition home or self-care (01) ==
LOC: HO.HHCL 09:33
PROVIDERS: Nurse Practitioner Family; PCP Nurse Practitioner; Visit Provider Nurse Practitioner
DX: E78.2 Mixed hyperlipidemia (principal)
CPT/HCPCS: 36415; 80053; 80061